=== PATIENT | male | born 1945 | race Caucasian/White ===

== ENCOUNTER → 2019-07-31 | Outpatient (CLI) | payer MEDICARE, OTHER ==
[~2019-07-31] MED LIST: Aspirin EC81 MG PO; CARV3.125 PO; COENZYME Q10100 MG PO; LISI20 PO; REPATHA SU140 MG/1 M SC; THERA-D2000 UNIT PO
[2019-08-03 14:07] LABS: M-SPIKE, % Not Observed % (Not Observed); PROTEIN,TOTAL,URINE 8.4 mg/dL (Not Estab.)
== END | disposition home or self-care (01) ==
LOC: OLS 06:00 → LAB SHORT 06:00
PROVIDERS: Internal Medicine
DX: Z00.01 Encounter for general adult medical examination with abnormal findings (principal)
CPT/HCPCS: 81050; 84156; 84166

== ENCOUNTER 2019-08-31 06:30 | Day surgery (SDC) | payer MEDICARE, OTHER ==
[~2019-08-31] VITALS: Ht 172.7 cm; Wt 84.8 kg
--- NOTE | 2019-08-31 08:15 | NUR ---
08/31/[address] AT BEDSIDE FOR CX WITH PATIENT. PROCEEDED WITH LEFT SHOULDER NERVE BLOCK PROC START 0804 INJ: 0807 PROC END: 08 PATIENT TOLERATED WELL WITH NO COMPLAINTS.
--- NOTE | 2019-08-31 09:33 | NUR ---
08/31/19 0933 Mary Randhawa 1 MG EPI ADDED TO EACH OF THE FIRST 3 LR BAGS.
== END 2019-08-31 11:25 | disposition home or self-care (01) ==
LOC: ORSCSDS 06:30
PROVIDERS: Orthopaedic Surgery
PROC: 0RBK4ZZ Excision of Left Shoulder Joint, Percutaneous Endoscopic Approach (ICD-10-PCS; principal; 2019-08-31 08:00)
PROC: 0LU24KZ Supplement Left Shoulder Tendon with Nonautologous Tissue Substitute, Percutaneous Endoscopic Approach (ICD-10-PCS; principal; 2019-08-31 08:00)
PROC: 0LQ24ZZ Repair Left Shoulder Tendon, Percutaneous Endoscopic Approach (ICD-10-PCS; principal; 2019-08-31 08:00)
PROC: 0RNK4ZZ Release Left Shoulder Joint, Percutaneous Endoscopic Approach (ICD-10-PCS; principal; 2019-08-31 08:00)
DX: M75.22 Bicipital tendinitis, left shoulder (principal); S46.002D Unspecified injury of muscle(s) and tendon(s) of the rotator cuff of left shoulder, subsequent encounter; M19.012 Primary osteoarthritis, left shoulder; M75.42 Impingement syndrome of left shoulder; I10 Essential (primary) hypertension; E11.9 Type 2 diabetes mellitus without complications; E78.5 Hyperlipidemia, unspecified; I25.2 Old myocardial infarction; Z87.891 Personal history of nicotine dependence; J44.9 Chronic obstructive pulmonary disease, unspecified; Z79.899 Other long term (current) drug therapy
CPT/HCPCS: C1713; J0171; J0690; J1100; J1885; J2250; J2370; J2405; J2704; J2795; J3010; J7120

== ENCOUNTER 2020-07-21 13:39 | Emergency (ER) | payer MEDICARE, OTHER ==
[~2020-07-21] VITALS: Ht 172.7 cm; Wt 81.7 kg
== END 2020-07-21 15:34 | disposition home or self-care (01) ==
LOC: ER 13:39
DX: S09.90XA Unspecified injury of head, initial encounter (principal); E11.9 Type 2 diabetes mellitus without complications; I10 Essential (primary) hypertension; Z79.82 Long term (current) use of aspirin; Z79.899 Other long term (current) drug therapy; Z87.891 Personal history of nicotine dependence; Z88.8 Allergy status to other drugs, medicaments and biological substances; W05.0XXA Fall from non-moving wheelchair, initial encounter
CPT/HCPCS: 70450; 99284-25

== ENCOUNTER → 2020-09-04 | Outpatient (CLI) | payer MEDICARE, OTHER ==
[~2020-09-04] MED LIST changes: +DIGOX125 MC1 PO; +ELIQUIS5 MG PO; +METF500 PO; +METOPROLOL SUCC25 MG PO
== END | disposition home or self-care (01) ==
LOC: PLD 08:12 → LAB SHORT 08:12
DX: B35.1 Tinea unguium (principal)
CPT/HCPCS: 88305; 88312

== ENCOUNTER 2020-12-18 15:55 | Emergency (ER) | payer MEDICARE, BC ==
[~2020-12-18] VITALS: Ht 172.7 cm; Wt 71.2 kg
[~2020-12-18 15:55] MED LIST changes: -DIGOX125 MC1 PO; -ELIQUIS5 MG PO; -METF500 PO; -METOPROLOL SUCC25 MG PO
[2020-12-18 16:55] LABS: BASOPHILS ABSOLUTE AUTO 0.04 K/mm3 (0.00-0.23); BASOPHILS PERCENT AUTO 1 % (0-2); EOSINOPHILS ABSOLUTE AUTO 0.12 K/mm3 (0.00-0.68); EOSINOPHILS PERCENT AUTO 2 % (0-6); Hematocrit 42.8 % (37.0-53.0); Hemoglobin 14.2 g/dL (13.5-17.5); IMMATURE GRAN ABSOLUTE AUTO 0.02 K/mm3 (0.00-0.10); IMMATURE GRAN PERCENT AUTO 0 % (0-1); LYMPHOCYTES ABSOLUTE AUTO 1.64 K/mm3 (0.84-5.20); LYMPHOCYTES PERCENT AUTO 22 % (21-46); MONOCYTES ABSOLUTE AUTO 0.64 K/mm3 (0.16-1.47); MONOCYTES PERCENT AUTO 9 % (4-13); Mean Corpuscular HGB Conc 33.2 g/dL (31.5-36.5); Mean Corpuscular Volume 93 fL (80-100); Mean Platelet Volume 10.6 fL (9.1-12.4); NEUTROPHILS ABSOLUTE AUTO 4.92 K/mm3 (1.96-9.15); NEUTROPHILS PERCENT AUTO 67 % (41-73); NRBC ABSOLUTE 0.02 K/mm3 (0.00-0.02); NRBC Auto 0.3 /100 WBC (0.0-0.2); Platelet Count 231 K/mm3 (150-400); RDW Coefficient Variation 12.5 % (11.7-14.2); RDW Standard Deviation 43.1 fL (35.1-46.3); Red Blood Cell Count 4.58 M/mm3 (4.30-5.90); White Blood Cell Count 7.38 K/mm3 (4.00-11.30)
[2020-12-18 17:15] LABS: Alanine Aminotransfer (ALT/SGP 18 U/L (12-78); Albumin, Blood 3.5 g/dL (3.4-5.0); Alk Phos 70 U/L (50-136); Anion Gap 3 mmol/L (6-16); Aspartate Aminotrans (AST/SGOT 5 U/L (12-37); Bilirubin, Total 0.3 mg/dL (0.1-1.0); Blood Urea Nitrogen 17 mg/dL (8-24); Bun/Creatinine Ratio 19.8 (12.0-20.0); CO2, Blood 31 mmol/L (21-32); Calcium, Blood 9.4 mg/dL (8.5-10.1); Chloride, Blood 106 mmol/L (98-108); Creatinine, Blood 0.86 mg/dL (0.60-1.20); Globulin, Blood 3.6 g/dL (2.2-4.0); Glomerular Filtration Rate >60 (60-); Glucose, Blood 217 mg/dL (70-99); Sodium, Blood 140 mmol/L (136-145); Total Protein, Blood 7.1 g/dL (6.4-8.2)
[2020-12-18] MEDS ORDERED: ELIQUIS5 MG PO (20:54)
[2020-12-18] MEDS ORDERED: METF500 PO (20:55)
[2020-12-18] MEDS ORDERED: DIGOX125 MC1 PO (20:55)
[2020-12-18] MEDS ORDERED: METOPROLOL SUCC25 MG PO (20:56)
== END 2020-12-18 21:05 | disposition home or self-care (01) ==
LOC: ER 15:55
PROVIDERS: Physician Assistant
DX: R05 Cough (principal); E11.9 Type 2 diabetes mellitus without complications; I10 Essential (primary) hypertension; E78.00 Pure hypercholesterolemia, unspecified; Z88.8 Allergy status to other drugs, medicaments and biological substances; Z79.82 Long term (current) use of aspirin; Z79.899 Other long term (current) drug therapy; Z87.891 Personal history of nicotine dependence
CPT/HCPCS: 71046; 80053; 85025; 99283-25

== ENCOUNTER → 2021-01-16 | Outpatient (CLI) | payer MEDICARE, BC ==
[~2021-01-16] MED LIST changes: +DIGOX125 MC1 PO; +ELIQUIS5 MG PO; +METF500 PO; +METOPROLOL SUCC25 MG PO
== END ==
LOC: LAB SHORT 11:30 → LAB 11:30
DX: N39.0 Urinary tract infection, site not specified (principal)
CPT/HCPCS: 87077; 87086; 87186

== ENCOUNTER 2021-04-01 08:04 | Inpatient (IN) | payer MEDICARE, BC ==
[~2021-04-01] VITALS: Ht 172.7 cm; Wt 74.8 kg
[2021-04-01 08:33] LABS: BASOPHILS ABSOLUTE AUTO 0.03 K/mm3 (0.00-0.23); BASOPHILS PERCENT AUTO 0 % (0-2); EOSINOPHILS PERCENT AUTO 0 % (0-6); Hematocrit 45.4 % (37.0-53.0); Hemoglobin 15.3 g/dL (13.5-17.5); IMMATURE GRAN ABSOLUTE AUTO 0.07 K/mm3 (0.00-0.10); IMMATURE GRAN PERCENT AUTO 1 % (0-1); LYMPHOCYTES ABSOLUTE AUTO 0.82 K/mm3 (0.84-5.20); LYMPHOCYTES PERCENT AUTO 6 % (21-46); MONOCYTES ABSOLUTE AUTO 1.14 K/mm3 (0.16-1.47); MONOCYTES PERCENT AUTO 8 % (4-13); Mean Corpuscular HGB 30.9 pg (26.0-34.0); Mean Corpuscular HGB Conc 33.7 g/dL (31.5-36.5); Mean Corpuscular Volume 92 fL (80-100); NEUTROPHILS PERCENT AUTO 85 % (41-73); RDW Coefficient Variation 12.7 % (11.7-14.2); RDW Standard Deviation 43.4 fL (35.1-46.3); Red Blood Cell Count 4.95 M/mm3 (4.30-5.90); White Blood Cell Count 14.16 K/mm3 (4.00-11.30)
[2021-04-01] MEDS ORDERED: PRALUENT P75 MG/1 ML SC (08:41)
[2021-04-01] MEDS ORDERED: Protonix40 M1 PO (08:42)
[2021-04-01 08:50] LABS: Alanine Aminotransfer (ALT/SGP 28 U/L (12-78); Albumin, Blood 3.5 g/dL (3.4-5.0); Albumin/Globulin Ratio 0.9 (0.8-1.8); Alk Phos 64 U/L (50-136); Anion Gap 3 mmol/L (6-16); Aspartate Aminotrans (AST/SGOT 17 U/L (12-37); Bilirubin, Total 1.3 mg/dL (0.1-1.0); Blood Urea Nitrogen 32 mg/dL (8-24); CO2, Blood 30 mmol/L (21-32); Calcium, Blood 9.4 mg/dL (8.5-10.1); Chloride, Blood 103 mmol/L (98-108); Glomerular Filtration Rate >60 (60-); Glucose, Blood 235 mg/dL (70-99); Potassium, Blood 3.9 mmol/L (3.5-5.5); Sodium, Blood 136 mmol/L (136-145); Total Protein, Blood 7.5 g/dL (6.4-8.2); Troponin I <0.015 ng/mL (0.000-0.040)
[2021-04-01 09:10] LABS: Mean Platelet Volume 10.5 fL (9.1-12.4); Platelet Count 196 K/mm3 (150-400)
[2021-04-01 09:55] LABS: Source, Urine Catheter
[2021-04-01 10:07] LABS: Appearance, Urine Clear (Clear); Bilirubin, Urine Neg (Neg); Blood, Urine 4+ (Neg); Color, Urine Amber (P-Yellow); Glucose Qualitative, Urine 4+ (Neg); Ketones, Urine 3+ (Neg); Leukocyte Esterase, Urine Neg (Neg); Nitrite, Urine Neg (Neg); Protein, Urine 2+ (Neg); Specific Gravity, Urine 1.025 (1.003-1.022); Urobilinogen, Urine NORM (Normal)
[2021-04-01 10:43] LABS: Red Blood Cells, Urine 25-50 /hpf (0-2); Squamous Epithelial Cells Rare /hpf (Few)
[2021-04-01 10:44] LABS: Bacteria Mod /hpf; Mucus Mod (0-Heavy)
[2021-04-01 11:53] LABS: Digoxin (Lanoxin) 0.65 ug/mL (0.80-2.00)
--- NOTE | 2021-04-01 16:23 | NUR ---
LATE ENTRY: ASSUMED CARE OF PT FROM ED THIS AFTERNOON. VSS. PT A&O X3. PT VERY PLESANT & THANKFUL FOR CARE. LS CLEAR, HARD FOR PT TO TAKE A DEEP BREATH W/O COUGHING. PT STATES SOB HAS INCREASE OVER THE LAST 3 DAYS. /10 WHEN STILL, PT STATES PAIN INCREASES WITH MOVEMENT OR COUGHING, PAIN IS TOLERABLE AT THIS TIME. DR LEZAMA & DR BECKER HAVE BOTH BEEN INTO SEE PT. PT AWAITING SURERY FOR CHOLECYSITIS. PT STATES HE TOOK ELIQUIS LAST NIGHT, PER DR LEZAMA WAITING A DAY OR TWO TO GET THIS OUT OF HIS SYSTEM. ALSO AWAITING CARDIOLOGY CLEARANCE FOR SEVERE AORTIC VALVE STENOSIS. PLAN IS TO MONITOR PT UNTIL THESE THINGS ARE COMPLETED. RN & DR LEZAMA HAVE BEEN IN CONTACT WITH PT . 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 PT IS RESTING COMFORTABLY WITH CALL LIGHT WITHIN REACH. WILL CONTINUE TO MONITOR UNTIL REPORT TO NIGHT SOURAV.
--- NOTE | 2021-04-01 20:30 | NUR ---
PT. WITH CLEAR LUNGS. PT. DOES HAVE A COUGH IN WHICH HE WAS MEDICATED FOR THIS EARLIER. PT. DENIED PAIN AT THE TIME. PT. WITH RIGHT HAND/ARM BRACE INTACT. PT. WITH PAS INTACT. PT. UNABLE TO MOVE HIS RIGHT SIDE. PT. ABLE TO MOVE HIS LEFT SIDE. PT. WITH HX OF STROKE IN THE PAST. PT. WITH CALL LIGHT WITHIN REACH. PT. VERBALIZES BEING WARM ENOUGH & NOT NEEDING A WARM BLANKET.
--- NOTE | 2021-04-01 22:21 | NUR ---
HOSPITALIST HERE TO CHECK ON PT. ORDER WAS RECEIVED LATER FOR A COVID TEST TO BE DONE IN WHICH COVID TEST WAS COLLECTED AT 2253 & TAKEN TO LAB.
--- NOTE | 2021-04-01 23:07 | NUR ---
PT. PUT HIS CALL LIGHT ON & WANTED TO CHANGE HIS POSITION. PT. WAS ALSO INCONTINENT OF URINE. PT. CLEANED UP WITH WARM WIPES & A NEW DIAPER WAS PLACED. PT. WITH BARRIER DRESSING INTACT. BOTTOM PINK. PT. WAS THEN TURNED TO HIS RIGHT SIDE & WITH HOB UP AT LEAST 30 DEGREES. PT. WAS GIVEN HIS CALL LIGHT & HIS WATER & JUICE IS WITHIN REACH ON HIS BEDSIDE TABLE.
[2021-04-01 23:47] LABS: SARS-Cov-2 (COVID-19) PCR, MMC NEGATIVE (NEGATIVE)
--- NOTE | 2021-04-02 02:09 | NUR ---
WENT IN TO CHECK ON PT. PT. WAS COUGHING. ASKED PT. IF HE WANTED ANY COUGH MEDICATION, PT. DENIED NEEDING ANY AT THIS TIME. CHECKED PT. TO SEE IF HE WAS INCONTINENT OF URINE, PT. DRY AT THIS TIME. ASKED PT. IF HE WANTED TO CHANGE POSITIONS, PT. VERBALIZED HE WAS FINE HOW HE WAS. PT. DRINKING WATER FROM HIS BEDSIDE CUP. CALL LIGHT IS WITHIN REACH.
--- NOTE | 2021-04-02 05:45 | NUR ---
PT. IS FLACCID ON RIGHT SIDE, ARM/HAND BRACE REMAINS INTACT. PT. ABLE TO MOVE LEFT SIDE. PT. DRINKING SIPS OF WATER OFF & ON. PT. DENIED PAIN. PT. COUGHING OFF & ON BUT DIDN'T WANT ANY COUGH SYRUP. PT. ASSISTED BY 2 STAFF TO CHANGE POSITIONS WHEN PT. WANTED TO REPOSITION. PT. ALSO INCONTINENT OF URINE X2. PT. WITH CALL LIGHT WITHIN REACH. PT. A&O X3. COVID TEST WAS DONE DURING THE NIGHT WITH RESULTS COMING BACK NEGATIVE.
--- NOTE | 2021-04-02 05:59 | NUR ---
IV NS CONTINUES AT 50ML/HR.
[2021-04-02 06:23] LABS: BASOPHILS ABSOLUTE AUTO 0.04 K/mm3 (0.00-0.23); BASOPHILS PERCENT AUTO 0 % (0-2); EOSINOPHILS ABSOLUTE AUTO 0.03 K/mm3 (0.00-0.68); EOSINOPHILS PERCENT AUTO 0 % (0-6); Hematocrit 40.9 % (37.0-53.0); Hemoglobin 13.8 g/dL (13.5-17.5); IMMATURE GRAN ABSOLUTE AUTO 0.06 K/mm3 (0.00-0.10); IMMATURE GRAN PERCENT AUTO 1 % (0-1); LYMPHOCYTES ABSOLUTE AUTO 1.29 K/mm3 (0.84-5.20); LYMPHOCYTES PERCENT AUTO 11 % (21-46); MONOCYTES ABSOLUTE AUTO 1.14 K/mm3 (0.16-1.47); MONOCYTES PERCENT AUTO 10 % (4-13); Mean Corpuscular HGB 31.3 pg (26.0-34.0); Mean Corpuscular HGB Conc 33.7 g/dL (31.5-36.5); Mean Corpuscular Volume 93 fL (80-100); Mean Platelet Volume 10.5 fL (9.1-12.4); NEUTROPHILS ABSOLUTE AUTO 9.44 K/mm3 (1.96-9.15); NEUTROPHILS PERCENT AUTO 79 % (41-73); Platelet Count 173 K/mm3 (150-400); RDW Coefficient Variation 12.5 % (11.7-14.2); RDW Standard Deviation 43.2 fL (35.1-46.3); Red Blood Cell Count 4.41 M/mm3 (4.30-5.90)
[2021-04-02 06:52] LABS: Alanine Aminotransfer (ALT/SGP 31 U/L (12-78); Albumin, Blood 2.8 g/dL (3.4-5.0); Albumin/Globulin Ratio 0.8 (0.8-1.8); Alk Phos 57 U/L (50-136); Anion Gap 4 mmol/L (6-16); Aspartate Aminotrans (AST/SGOT 17 U/L (12-37); Bilirubin, Total 0.9 mg/dL (0.1-1.0); Blood Urea Nitrogen 24 mg/dL (8-24); Bun/Creatinine Ratio 34.2 (12.0-20.0); CO2, Blood 28 mmol/L (21-32); Calcium, Blood 8.7 mg/dL (8.5-10.1); Chloride, Blood 105 mmol/L (98-108); Globulin, Blood 3.7 g/dL (2.2-4.0); Glomerular Filtration Rate >60 (60-); Glucose, Blood 166 mg/dL (70-99); Potassium, Blood 3.8 mmol/L (3.5-5.5); Sodium, Blood 137 mmol/L (136-145); Total Protein, Blood 6.5 g/dL (6.4-8.2)
--- NOTE | 2021-04-02 08:18 | NUR ---
HOB RAISED TO 45 DEGREES FOR EATING.PT ON CLEAR LIQUID DIET AND TOLERATED WELL. DISCUSSED WITH PT AWAITING CARDIOLOGY CONSULT FOR FURTHER PLAN AND TREATMENT. PT IN BED RESTING WILL CALL LIGHT WITHIN REACH ON LT SIDE. NO COMPLAINT OF PAIN AT THIS TIME.
--- NOTE | 2021-04-02 10:36 | NUR ---
DURING LINEN AND ATTENDS CHANGE THE PATIENT WAS ASKED IF HE WOULD LIKE TO BE TURNED ON ONE SIDE. PT DECLINED AND STATED HE WOULD PREFER TO LAY ON HIS BACK. PT BOOSTED IN BED AND SET UP WITH A TABLET TO WATCH A MOVIE.
--- NOTE | 2021-04-02 11:17 | NUR ---
BROUGHT IN COPY OF ADVANCE DIRECTIVE AND PT'S DAYTIME ARM/HAND BRACE WITH SLING STRAP. PLACED DAYTIME BRACE ON PT'S RT UPPER EXTREMITY. PT TOLERATED WITHOUT COMPLAINTS OR COMPLICATIONS. ADVANCE DIRECTIVE PLACED IN PT'S CHART.
--- NOTE | 2021-04-03 05:11 | NUR ---
PT REPOSTIONED THROUGH THE NIGHT PER PT'S REQUEST. DIAPER CHANGED AND SHAHEEN CARE DONE TWICE DURING THE NIGHT. PT NPO FOR SURGERY TODAY. PT CALM, RESTED THROUGH THE NIGHT. BED IN LOW, LOCKED POSITION, CALL LIGHT IN REACH.
[2021-04-03 05:24] LABS: BASOPHILS ABSOLUTE AUTO 0.03 K/mm3 (0.00-0.23); BASOPHILS PERCENT AUTO 0 % (0-2); EOSINOPHILS ABSOLUTE AUTO 0.05 K/mm3 (0.00-0.68); EOSINOPHILS PERCENT AUTO 1 % (0-6); Hematocrit 40.7 % (37.0-53.0); Hemoglobin 13.7 g/dL (13.5-17.5); IMMATURE GRAN ABSOLUTE AUTO 0.03 K/mm3 (0.00-0.10); IMMATURE GRAN PERCENT AUTO 0 % (0-1); LYMPHOCYTES ABSOLUTE AUTO 0.87 K/mm3 (0.84-5.20); LYMPHOCYTES PERCENT AUTO 8 % (21-46); MONOCYTES ABSOLUTE AUTO 1.07 K/mm3 (0.16-1.47); MONOCYTES PERCENT AUTO 10 % (4-13); Mean Corpuscular HGB Conc 33.7 g/dL (31.5-36.5); Mean Corpuscular Volume 92 fL (80-100); Mean Platelet Volume 10.7 fL (9.1-12.4); NEUTROPHILS ABSOLUTE AUTO 8.73 K/mm3 (1.96-9.15); NEUTROPHILS PERCENT AUTO 81 % (41-73); Platelet Count 175 K/mm3 (150-400); RDW Standard Deviation 40.9 fL (35.1-46.3); Red Blood Cell Count 4.42 M/mm3 (4.30-5.90); White Blood Cell Count 10.78 K/mm3 (4.00-11.30)
[2021-04-03 05:40] LABS: International Normalized Ratio 1.06; Prothrombin Time Results 11.4 Sec (9.7-11.5)
[2021-04-03 06:13] LABS: Alanine Aminotransfer (ALT/SGP 27 U/L (12-78); Albumin, Blood 2.6 g/dL (3.4-5.0); Albumin/Globulin Ratio 0.6 (0.8-1.8); Alk Phos 60 U/L (50-136); Anion Gap 6 mmol/L (6-16); Aspartate Aminotrans (AST/SGOT 16 U/L (12-37); Bilirubin, Total 0.9 mg/dL (0.1-1.0); Blood Urea Nitrogen 17 mg/dL (8-24); Bun/Creatinine Ratio 23.7 (12.0-20.0); CO2, Blood 26 mmol/L (21-32); Calcium, Blood 8.7 mg/dL (8.5-10.1); Chloride, Blood 104 mmol/L (98-108); Creatinine, Blood 0.72 mg/dL (0.60-1.20); Glomerular Filtration Rate >60 (60-); Glucose, Blood 164 mg/dL (70-99); Sodium, Blood 136 mmol/L (136-145); Total Protein, Blood 6.6 g/dL (6.4-8.2)
--- NOTE | 2021-04-03 07:42 | NUR ---
REDDEND AREA ON RT HEEL. PILLOW PLACED UNDER CALF TO ELEVATE HEEL OFF BED. WILL MONITOR FOR CHANGE IN STATUS AND ROTATE Q2H. CALL LIGHT AT BEDSIDE WITHIN REACH.
--- NOTE | 2021-04-03 09:26 | NUR ---
PT C/O CONSTIPATION STATING HIS LAST BM WAS WEDNESDAY. PT HAS BEEN ON A CLEAR LIQUID DIET. RN NOTIFIED.
--- NOTE | 2021-04-03 11:21 | NUR ---
IMAGING CAME TO TRANSFER PT FOR DRAIN PLACEMENT.
--- NOTE | 2021-04-03 13:31 | NUR ---
CALL PLACED TO HOSPITALIST DR LOPEZ. PT UNABLE TO SWALLOW CARDIAC MEDICATIONS. PT WAS ABLE TO SWALLOW TOPROL 50MG ONLY. PT WAS UNABLE TO TAKE HIS SCHEDULED DIGOXIN 0.125MG. TELEPHONE ORDER PER DR LOPEZ FOR SPEECH THERAPIST CONSULT AND DIGOXIN 0.125MG IV X1 NOW.
--- NOTE | 2021-04-03 15:52 | NUR ---
PT VOMITING LARGE AMOUNT OF GREEN VOMIT. PT'S OXYGEN SATS DROPPED TO 88% ON RA. BP 145/71. PULSE 93. RESPIRATIONS 36. RBS 220. PT APPEARS PALE AND NOT ABLE TO HOLD CONVERSATION. NOTIFIED DR LEZAMA WHOM PLACED STAT XRAY ORDER. PT PLACED ON OXYGEN 2L/MIN TO MAINTAIN OXYGEN SATURATION LEVEL OF 90%. CALLED RADIOLOGY TO COME FOR STAT XRAY.
[2021-04-03 17:14] LABS: BASOPHILS ABSOLUTE AUTO 0.05 K/mm3 (0.00-0.23); BASOPHILS PERCENT AUTO 0 % (0-2); EOSINOPHILS ABSOLUTE AUTO 0.03 K/mm3 (0.00-0.68); EOSINOPHILS PERCENT AUTO 0 % (0-6); Hematocrit 43.5 % (37.0-53.0); Hemoglobin 14.4 g/dL (13.5-17.5); IMMATURE GRAN ABSOLUTE AUTO 0.09 K/mm3 (0.00-0.10); IMMATURE GRAN PERCENT AUTO 1 % (0-1); LYMPHOCYTES ABSOLUTE AUTO 0.36 K/mm3 (0.84-5.20); LYMPHOCYTES PERCENT AUTO 2 % (21-46); MONOCYTES ABSOLUTE AUTO 0.97 K/mm3 (0.16-1.47); MONOCYTES PERCENT AUTO 7 % (4-13); Mean Corpuscular HGB 30.6 pg (26.0-34.0); Mean Corpuscular HGB Conc 33.1 g/dL (31.5-36.5); Mean Corpuscular Volume 93 fL (80-100); Mean Platelet Volume 10.5 fL (9.1-12.4); NEUTROPHILS ABSOLUTE AUTO 13.35 K/mm3 (1.96-9.15); NEUTROPHILS PERCENT AUTO 90 % (41-73); Platelet Count 201 K/mm3 (150-400); RDW Coefficient Variation 11.9 % (11.7-14.2); RDW Standard Deviation 41.3 fL (35.1-46.3); White Blood Cell Count 14.85 K/mm3 (4.00-11.30)
--- NOTE | 2021-04-03 17:15 | NUR ---
PT ARRIVED TO THE ROOM AT APPROXIMATELY 1700. PT LETHARGIC/DROWSY UPON ARRIVAL, PT RESPONDS TO VERBAL STIMULI. RR INCREASED AT APPROX 40/MIN, OTHER VSS. PT ON 2L O2 VIA NC AND MAINTAINING O2 SATURATIONS >90%. EXTREMITIES ARE COOL, CAP REFIL WNL. PULSES TO ALL EXTREMITIES PALPABLE AND PRESENT. IV FLUIDS RUNNING.
[2021-04-03 17:37] LABS: Alanine Aminotransfer (ALT/SGP 43 U/L (12-78); Albumin, Blood 2.7 g/dL (3.4-5.0); Albumin/Globulin Ratio 0.6 (0.8-1.8); Alk Phos 71 U/L (50-136); Anion Gap 12 mmol/L (6-16); Aspartate Aminotrans (AST/SGOT 39 U/L (12-37); Blood Urea Nitrogen 16 mg/dL (8-24); Bun/Creatinine Ratio 23.4 (12.0-20.0); CO2, Blood 21 mmol/L (21-32); Calcium, Blood 8.7 mg/dL (8.5-10.1); Chloride, Blood 102 mmol/L (98-108); Creatinine, Blood 0.69 mg/dL (0.60-1.20); Globulin, Blood 4.4 g/dL (2.2-4.0); Glomerular Filtration Rate >60 (60-); Glucose, Blood 220 mg/dL (70-99); Potassium, Blood 4.3 mmol/L (3.5-5.5); Sodium, Blood 135 mmol/L (136-145); Total Protein, Blood 7.1 g/dL (6.4-8.2); Troponin I 0.023 ng/mL (0.000-0.040)
--- NOTE | 2021-04-03 17:42 | NUR ---
LATE ENTRY STARTING AT 1540. PT'S BP 143/70 PULSE 90 OXYGEN 94% ON 2L/MIN. RANDOM BLOOD SUGAR TAKEN AND WAS 220.PT PALE WITH LABORED BREATHING. PT VOIMITING AND PROMETHAZINE GIVEN. PT RESPONDING TO VOICE BUT UNABLE TO COMPREHEND WHAT HE IS SAYING. PT'S BREATHING WORSENS AND RESPIRATIONS ARE 44 BPM. TEMP 99.9 DEGREES. CONTINUAL MONITORING PLACED ON PT. CONSULTED WITH DR LUONG. RAPID RESPONSE TEAM CALLED AROUND 1621.TEMP RECHECKED AND NOW [address] LEZAMA CONTACTED TO UPDATE ON PT'S DECLINING STATUS AND ADVISE OF RAPID RESPONSE CALL. RAPID RESPONSE TEAM ARRIVED AROUND APPROX 1624. REPORT GIVEN TO RAPID RESPONSE TEAM. DR LEZAMA AND DR LOPEZ ARRIVED. AT 1700 RAPID RESPONSE TEAM TRANSPORTED PT TO SURG FLOOR. REPORT GIVEN SOURAV CASTANON AT 1701.
--- NOTE | 2021-04-03 19:15 | NUR ---
SPOKE TO PT'S , MELVIN AND WILFREDO FELICIANO. SHE WAS CONCERNED ABOUT PT'S BGL. NURSING INFORMED HER THAT HIS GLUCOSE LEVELS ARE BEING MONITORED. SHE WAS CONCERNED ABOUT [facility]ARE AT [facility] WHEN PT WAS DISCHARGED. HOME CARE DISCUSSED. NURTRITIONAL NEEDS DISCUSSED. ENCOURAGED TO CALL FOR UPDATES. WILL CONTINUE TO MONITOR AND ADDRESS NEEDS THEY ARISE.
--- NOTE | 2021-04-03 19:56 | NUR ---
SHIFT SUMMARY PT REMAINS DROWSY/LETHARGIC SINCE ARRIVAL TO THE UNIT. PT CONTINUES TO WAKE UP TO VERBAL STIMULI. UNABLE TO UNDERSTAND HIS SPEECH IT IS VERY QUIET. FLUIDS INCREASED TO 100ML/HOUR PER DR. LOPEZ. REPORT GIVEN TO ORQUIDEA BENJAMIN.
--- NOTE | 2021-04-03 22:52 | NUR ---
DR BENEDICT UPDATED ON PT'S PROGRESS.
--- NOTE | 2021-04-04 00:53 | NUR ---
PT IS MORE ALERT AT THIS TIME. AAO X3, ABLE TO MOVE LEFT SIDE. ATTENDS IS DRY, USED THE URINAL WHEN PROMPTED. VOICES MILD PAIN AT INSERTION SITE. REFUSES PAIN MEDS OFFERED. ASSISTED IN REPOSITIONING FOR COMFORT. DENIES FURTHER NEEDS OR WANTS AT THIS TIME. SAFETY MEASURES IN PLACE. WILL CONTINUE TO MONITOR AND ADDRESS NEEDS THEY ARISE.
[2021-04-04 04:17] LABS: Hematocrit 39.5 % (37.0-53.0); Hemoglobin 13.5 g/dL (13.5-17.5); Mean Corpuscular HGB 31.7 pg (26.0-34.0); Mean Corpuscular HGB Conc 34.2 g/dL (31.5-36.5); Mean Corpuscular Volume 93 fL (80-100); Mean Platelet Volume 10.6 fL (9.1-12.4); Platelet Count 186 K/mm3 (150-400); RDW Coefficient Variation 12.2 % (11.7-14.2); RDW Standard Deviation 41.6 fL (35.1-46.3); Red Blood Cell Count 4.26 M/mm3 (4.30-5.90); White Blood Cell Count 11.83 K/mm3 (4.00-11.30)
[2021-04-04 04:41] LABS: Alanine Aminotransfer (ALT/SGP 34 U/L (12-78); Albumin, Blood 2.3 g/dL (3.4-5.0); Albumin/Globulin Ratio 0.6 (0.8-1.8); Alk Phos 58 U/L (50-136); Anion Gap 4 mmol/L (6-16); Aspartate Aminotrans (AST/SGOT 21 U/L (12-37); Bilirubin, Total 1.1 mg/dL (0.1-1.0); Blood Urea Nitrogen 15 mg/dL (8-24); CO2, Blood 26 mmol/L (21-32); Calcium, Blood 8.6 mg/dL (8.5-10.1); Chloride, Blood 107 mmol/L (98-108); Creatinine, Blood 0.68 mg/dL (0.60-1.20); Globulin, Blood 3.9 g/dL (2.2-4.0); Glomerular Filtration Rate >60 (60-); Glucose, Blood 168 mg/dL (70-99); Potassium, Blood 3.8 mmol/L (3.5-5.5); Sodium, Blood 137 mmol/L (136-145); Total Protein, Blood 6.2 g/dL (6.4-8.2)
--- NOTE | 2021-04-04 05:25 | NUR ---
LYING IN SEMI FOWLERS WITH EYES CLOSED, HE HAS RESTED WELL THIS SHIFT. HAS BEEN PLEASANT AND COOPERATIVE WITH CARE EACH TIME HE IS WOKEN UP. RIGHT UPPER QUAD DRAIN IS PATENT, DRAINING BILIOUS SS FLUID TO BAG. LEFT ARM AND LEFT HAND PIV'S ARE PATENT REMAIN PATENT, FLUSHING WITH EASE. GENTLE HYDRATION IN PROGRESS PER MD ORDERS. RESPIRATIONS EVEN AND UNLABORED ON O2 AT 2L/NC. DENIES FURTHER NEEDS OR WANTS AT THIS TIME. SAFETY MEASURES IN PLACE. WILL CONTINUE TO MONITOR AND GIVE HAND OFF TO ONCOMING SHIFT USING SBAR DURING BEDSIDE REPORT.
--- NOTE | 2021-04-04 05:34 | NUR ---
IVF CHANGED TO 50ML/HR PER MD ORDERS AFTER NS AT 100ML/HR WAS COMPLETED.
--- NOTE | 2021-04-04 06:15 | NUR ---
STATUS UPDATE GIVEN TO SPOUSE, MELVIN VIA TELEPHONE.
--- NOTE | 2021-04-04 06:40 | NUR ---
RESPOSITIONED AND DRANK WATER. INSTRUCTED ON SPLINTING WHEN COUGHING FOR ADDED SUPPORT, RETURN DEMONSTRATED CORRECTLY.
--- NOTE | 2021-04-04 17:58 | NUR ---
1630 TRANSFER VIA BED TO 216. PT AWAKE, ALERT, DENIES ANY NEEDS. UROSIL DRAIN PRESENT WITH DK BROWN SEROUS OUTPUT. PT DENIES NEED FOR PAIN MEDS
--- NOTE | 2021-04-04 18:00 | NUR ---
SPOKE WITH PATIENT REGARDING CODE STATUS- PT TELLS ME HE DOES WANT CPR AND IS OK WITH BEING PUT ON A BREATHING MACHINE. PER PATIENT HE JUST DOESNT WANT TO BE ON LIFE SUPPORT FOR WEEKS. PT RESTING CONFORTABLY
--- NOTE | 2021-04-04 19:17 | NUR ---
TRANSFER PT TRANSFERRED TO MED/SURGICAL.
[2021-04-05 04:47] LABS: BASOPHILS ABSOLUTE AUTO 0.03 K/mm3 (0.00-0.23); BASOPHILS PERCENT AUTO 1 % (0-2); EOSINOPHILS ABSOLUTE AUTO 0.14 K/mm3 (0.00-0.68); EOSINOPHILS PERCENT AUTO 3 % (0-6); Hematocrit 36.8 % (37.0-53.0); Hemoglobin 12.4 g/dL (13.5-17.5); IMMATURE GRAN ABSOLUTE AUTO 0.04 K/mm3 (0.00-0.10); IMMATURE GRAN PERCENT AUTO 1 % (0-1); LYMPHOCYTES PERCENT AUTO 15 % (21-46); MONOCYTES ABSOLUTE AUTO 0.68 K/mm3 (0.16-1.47); MONOCYTES PERCENT AUTO 12 % (4-13); Mean Corpuscular HGB 30.7 pg (26.0-34.0); Mean Corpuscular HGB Conc 33.7 g/dL (31.5-36.5); Mean Corpuscular Volume 91 fL (80-100); Mean Platelet Volume 10.3 fL (9.1-12.4); NEUTROPHILS ABSOLUTE AUTO 3.79 K/mm3 (1.96-9.15); NEUTROPHILS PERCENT AUTO 69 % (41-73); Platelet Count 175 K/mm3 (150-400); RDW Coefficient Variation 12.2 % (11.7-14.2); RDW Standard Deviation 40.8 fL (35.1-46.3); Red Blood Cell Count 4.04 M/mm3 (4.30-5.90); White Blood Cell Count 5.48 K/mm3 (4.00-11.30)
[2021-04-05 05:11] LABS: Alanine Aminotransfer (ALT/SGP 37 U/L (12-78); Albumin, Blood 2.2 g/dL (3.4-5.0); Albumin/Globulin Ratio 0.6 (0.8-1.8); Alk Phos 53 U/L (50-136); Anion Gap 4 mmol/L (6-16); Aspartate Aminotrans (AST/SGOT 24 U/L (12-37); Bilirubin, Total 0.6 mg/dL (0.1-1.0); Blood Urea Nitrogen 16 mg/dL (8-24); Bun/Creatinine Ratio 25.1 (12.0-20.0); CO2, Blood 26 mmol/L (21-32); Calcium, Blood 8.1 mg/dL (8.5-10.1); Chloride, Blood 110 mmol/L (98-108); Creatinine, Blood 0.64 mg/dL (0.60-1.20); Globulin, Blood 3.6 g/dL (2.2-4.0); Glomerular Filtration Rate >60 (60-); Glucose, Blood 156 mg/dL (70-99); Potassium, Blood 3.5 mmol/L (3.5-5.5); Sodium, Blood 140 mmol/L (136-145); Total Protein, Blood 5.8 g/dL (6.4-8.2)
[2021-04-05] MEDS ORDERED: AMOCLA875 PO (13:15)
--- NOTE | 2021-04-05 14:55 | NUR ---
DISCHARGE NOTE PT IS A/O X4. S/P DRAIN PLACEMENT FOR GANGRENOUS GALLBLADDER. PT DC'ING HOME WITH HOME HEALTH TO MANAGE DRAIN. DC INSTRUCTIONS REVIEWED WITH AT BEDSIDE, BOTH REPORT UNDERSTANDING. SUPPLIES SENT HOME WITH PT. SCRIPT FAXED TO PHARMACY PER PT REQUEST. IV DC'D WNL. PT DRESSED, ASSISTED INTO WHEELCHAIR AND ESCORTED BY STAFF TO PERSONAL VEHICLE WHERE IS DRIVING HOME. PAPERWORK AND PERSONAL BELONGINGS SENT WITH PT. PT AND HAVE HO QUESTIONS OR CONCERNS AT THIS TIME. ORDERS FOR HOME HEALTH FAXED TO [facility] PER PT REQUEST. DC'D AT 1500.
== END 2021-04-05 15:30 | disposition home health service (06) | DRG 445 ==
LOC: ER 08:04 → SURS 08:05 → ORSCIP 12:05 → SURS 13:41 → ORSCIP 13:42 → SURS 04-03 17:08
PROVIDERS: Emergency Medicine; Hospitalist; Internal Medicine; ADMIT Surgery
PROC: 0F9430Z Drainage of Gallbladder with Drainage Device, Percutaneous Approach (ICD-10-PCS; principal; 2021-04-03)
DX: K80.01 Calculus of gallbladder with acute cholecystitis with obstruction (principal); I69.351 Hemiplegia and hemiparesis following cerebral infarction affecting right dominant side; T81.44XA Sepsis following a procedure, initial encounter; T81.49XA Infection following a procedure, other surgical site, initial encounter; I10 Essential (primary) hypertension; E78.00 Pure hypercholesterolemia, unspecified; I48.91 Unspecified atrial fibrillation; I25.10 Atherosclerotic heart disease of native coronary artery without angina pectoris; E78.5 Hyperlipidemia, unspecified; K21.9 Gastro-esophageal reflux disease without esophagitis; I35.0 Nonrheumatic aortic (valve) stenosis; Z20.822 Contact with and (suspected) exposure to COVID-19; E11.9 Type 2 diabetes mellitus without complications; Z95.1 Presence of aortocoronary bypass graft; I25.2 Old myocardial infarction; Z98.890 Other specified postprocedural states; Z88.8 Allergy status to other drugs, medicaments and biological substances; Z79.01 Long term (current) use of anticoagulants; Z87.891 Personal history of nicotine dependence; Z79.899 Other long term (current) drug therapy; Y83.8 Other surgical procedures as the cause of abnormal reaction of the patient, or of later complication, without mention of misadventure at the time of the procedure
CPT/HCPCS: 36415; 49405; 51701; 71045; 74018; 74177; 76705; 80053; 80162; 81001; 82947; 83605; 83690; 84484; 85025; 85027; 85610; 87040; 87086; 92526; 92610; 93005; 93010; 96374-59; 99285-25; A9270; C9113; G0378; J0694; J1160; J2405; J2543; J2550; J7030; Q9967; U0004

== ENCOUNTER 2021-05-08 08:52 | Day surgery (SDC) | payer OTHER ==
[~2021-05-08] VITALS: Ht 172.7 cm; Wt 65.3 kg
[~2021-05-08 08:52] MED LIST changes: +AMOCLA875 PO; +PRALUENT P75 MG/1 ML SC; +Protonix40 M1 PO
--- NOTE | 2021-05-08 10:41 | NUR ---
DR. CHOI AT THE BEDSIDE AND SPOKE WITH THE PATIENT. VISITED WITH THE AND PATIENT, ALL QUESTIONS ANSWERED.
[2021-05-08 11:49] LABS: PCO2 Arterial 41 mmHg (35-45); PO2 Arterial 82 mmHg (80-100); pH Blood Arterial 7.43 (7.35-7.45)
--- NOTE | 2021-05-08 12:55 | NUR ---
PATIENT RETURNED FROM THE CATHLAB. RIGHT FEMORAL ARTERY ADN VEIN ACCESS SITES. FEMSTOP IN PLACE DUE TO A FAILED VENOUS CLOSURE DEVICE. MANUAL PRESSURE HELD AND FEMSTOP APPLIED AT 60 MM/HG. PEDAL PULSE PALPABLE 2+ MONITOR APPLIED AND CALL IGHT IN REACH. HOB FLAT BUT BED IN REVERSE TRENDELENBERG.
--- NOTE | 2021-05-08 13:25 | NUR ---
SBAR REPORT OBTAINED. DR. CHOI AT THE BEDSIDE AND SPOKE WITH THE AND .
--- NOTE | 2021-05-08 14:19 | NUR ---
FEMSTOP REMOVED. RIGHT GROIN SITE STABLE. RIGHT PEDAL PULSE 2+ PT/PT
--- NOTE | 2021-05-08 18:04 | NUR ---
DISCHARGE PT SAT UP IN BED AND SAT ON EDGE OF BED. PT DRESSED WITH ASSIST OF RN AND . PTS R FEMORAL SITE WITH NO BLEEDING, OOZING OR HEMATOMA NOTED. PT DENIES ANY PAIN AT SITE. PT AND STATE THEIR UNDERSTANDING OF DC AND SITE CARE INSTRUCTIONS AND BOTH DENY ANY QUESTIONS OR CONCERNS. VSS. IV DCD WITH CATH IN TACT. PT TAKE TO EXIT VIA PERSONAL WHEELCHAIR WHERE WAS WAITING WITH VEHICLE.
== END 2021-05-08 22:56 | disposition home or self-care (01) ==
LOC: MHTC 08:52
PROVIDERS: Registered Nurse
PROC: B2111ZZ Fluoroscopy of Multiple Coronary Arteries using Low Osmolar Contrast (ICD-10-PCS; principal; 2021-05-08)
PROC: 4A023N8 Measurement of Cardiac Sampling and Pressure, Bilateral, Percutaneous Approach (ICD-10-PCS; principal; 2021-05-08)
PROC: B2181ZZ Fluoroscopy of Left Internal Mammary Bypass Graft using Low Osmolar Contrast (ICD-10-PCS; principal; 2021-05-08)
DX: I35.0 Nonrheumatic aortic (valve) stenosis (principal); I11.0 Hypertensive heart disease with heart failure; I50.9 Heart failure, unspecified; I25.10 Atherosclerotic heart disease of native coronary artery without angina pectoris; E78.5 Hyperlipidemia, unspecified; E11.51 Type 2 diabetes mellitus with diabetic peripheral angiopathy without gangrene; I48.0 Paroxysmal atrial fibrillation; Z95.5 Presence of coronary angioplasty implant and graft; Z88.8 Allergy status to other drugs, medicaments and biological substances; Z95.1 Presence of aortocoronary bypass graft; Z79.01 Long term (current) use of anticoagulants; Z79.899 Other long term (current) drug therapy; Z87.891 Personal history of nicotine dependence
CPT/HCPCS: 82803; 93461; 99152; C1751; C1760; C1769; C1894; J1644; J2250; J3010; J7030; J7040; J7050; Q9967

== ENCOUNTER 2021-05-14 18:10 | Emergency (ER) | payer OTHER, BC ==
[~2021-05-14] VITALS: Ht 172.7 cm; Wt 66.2 kg
[2021-05-14 18:48] LABS: BASOPHILS ABSOLUTE AUTO 0.03 K/mm3 (0.00-0.23); BASOPHILS PERCENT AUTO 1 % (0-2); EOSINOPHILS ABSOLUTE AUTO 0.12 K/mm3 (0.00-0.68); EOSINOPHILS PERCENT AUTO 2 % (0-6); Hematocrit 38.5 % (37.0-53.0); Hemoglobin 12.9 g/dL (13.5-17.5); IMMATURE GRAN ABSOLUTE AUTO 0.02 K/mm3 (0.00-0.10); IMMATURE GRAN PERCENT AUTO 0 % (0-1); LYMPHOCYTES ABSOLUTE AUTO 1.58 K/mm3 (0.84-5.20); LYMPHOCYTES PERCENT AUTO 29 % (21-46); MONOCYTES ABSOLUTE AUTO 0.49 K/mm3 (0.16-1.47); MONOCYTES PERCENT AUTO 9 % (4-13); Mean Corpuscular HGB 30.9 pg (26.0-34.0); Mean Corpuscular HGB Conc 33.5 g/dL (31.5-36.5); Mean Corpuscular Volume 92 fL (80-100); Mean Platelet Volume 9.9 fL (9.1-12.4); NEUTROPHILS ABSOLUTE AUTO 3.14 K/mm3 (1.96-9.15); NEUTROPHILS PERCENT AUTO 58 % (41-73); Platelet Count 209 K/mm3 (150-400); RDW Coefficient Variation 12.8 % (11.7-14.2); RDW Standard Deviation 43.5 fL (35.1-46.3); Red Blood Cell Count 4.17 M/mm3 (4.30-5.90); White Blood Cell Count 5.38 K/mm3 (4.00-11.30)
[2021-05-14 19:10] LABS: Alanine Aminotransfer (ALT/SGP 45 U/L (12-78); Albumin, Blood 3.1 g/dL (3.4-5.0); Albumin/Globulin Ratio 0.7 (0.8-1.8); Alk Phos 65 U/L (50-136); Anion Gap 5 mmol/L (6-16); Aspartate Aminotrans (AST/SGOT 25 U/L (12-37); Bilirubin, Total 0.4 mg/dL (0.1-1.0); Blood Urea Nitrogen 20 mg/dL (8-24); Bun/Creatinine Ratio 26.5 (12.0-20.0); CO2, Blood 27 mmol/L (21-32); Calcium, Blood 9.4 mg/dL (8.5-10.1); Chloride, Blood 107 mmol/L (98-108); Creatinine, Blood 0.75 mg/dL (0.60-1.20); Globulin, Blood 4.2 g/dL (2.2-4.0); Glomerular Filtration Rate >60 (60-); Glucose, Blood 141 mg/dL (70-99); Potassium, Blood 3.9 mmol/L (3.5-5.5); Sodium, Blood 139 mmol/L (136-145); Total Protein, Blood 7.3 g/dL (6.4-8.2)
[2021-05-14] MEDS ORDERED: CEPH500 PO (22:58)
== END 2021-05-14 23:12 | disposition home or self-care (01) ==
LOC: ER 18:10
PROVIDERS: Emergency Medicine
DX: T81.40XA Infection following a procedure, unspecified, initial encounter (principal); Z88.8 Allergy status to other drugs, medicaments and biological substances; Z79.899 Other long term (current) drug therapy; I10 Essential (primary) hypertension; E11.9 Type 2 diabetes mellitus without complications; E78.00 Pure hypercholesterolemia, unspecified; I25.2 Old myocardial infarction; Z79.01 Long term (current) use of anticoagulants; Z79.84 Long term (current) use of oral hypoglycemic drugs; Z86.73 Personal history of transient ischemic attack (TIA), and cerebral infarction without residual deficits; Z90.49 Acquired absence of other specified parts of digestive tract
CPT/HCPCS: 36415; 80053; 83605; 85025; 99283

== ENCOUNTER 2021-07-03 21:41 | Inpatient (IN) | payer MEDICARE, BC ==
[~2021-07-03] VITALS: Ht 172.7 cm; Wt 66.7 kg
[~2021-07-03 21:41] MED LIST changes: +CEPH500 PO
[2021-07-03 22:09] LABS: BASOPHILS ABSOLUTE AUTO 0.04 K/mm3 (0.00-0.23); BASOPHILS PERCENT AUTO 1 % (0-2); EOSINOPHILS ABSOLUTE AUTO 0.12 K/mm3 (0.00-0.68); EOSINOPHILS PERCENT AUTO 1 % (0-6); Hematocrit 41.9 % (37.0-53.0); IMMATURE GRAN ABSOLUTE AUTO 0.02 K/mm3 (0.00-0.10); IMMATURE GRAN PERCENT AUTO 0 % (0-1); LYMPHOCYTES ABSOLUTE AUTO 0.87 K/mm3 (0.84-5.20); LYMPHOCYTES PERCENT AUTO 10 % (21-46); MONOCYTES ABSOLUTE AUTO 0.76 K/mm3 (0.16-1.47); MONOCYTES PERCENT AUTO 9 % (4-13); Mean Corpuscular HGB 31.3 pg (26.0-34.0); Mean Corpuscular HGB Conc 33.4 g/dL (31.5-36.5); Mean Corpuscular Volume 94 fL (80-100); Mean Platelet Volume 10.5 fL (9.1-12.4); NEUTROPHILS ABSOLUTE AUTO 6.55 K/mm3 (1.96-9.15); NEUTROPHILS PERCENT AUTO 78 % (41-73); Platelet Count 177 K/mm3 (150-400); RDW Coefficient Variation 12.5 % (11.7-14.2); RDW Standard Deviation 43.1 fL (35.1-46.3); Red Blood Cell Count 4.47 M/mm3 (4.30-5.90); White Blood Cell Count 8.36 K/mm3 (4.00-11.30)
[2021-07-03 22:30] LABS: Alanine Aminotransfer (ALT/SGP 405 U/L (12-78); Albumin, Blood 3.3 g/dL (3.4-5.0); Albumin/Globulin Ratio 0.9 (0.8-1.8); Alk Phos 325 U/L (50-136); Anion Gap 6 mmol/L (6-16); Aspartate Aminotrans (AST/SGOT 361 U/L (12-37); Bilirubin, Total 1.5 mg/dL (0.1-1.0); Blood Urea Nitrogen 17 mg/dL (8-24); Bun/Creatinine Ratio 26.9 (12.0-20.0); CO2, Blood 28 mmol/L (21-32); Calcium, Blood 9.2 mg/dL (8.5-10.1); Chloride, Blood 105 mmol/L (98-108); Creatinine, Blood 0.63 mg/dL (0.60-1.20); Globulin, Blood 3.6 g/dL (2.2-4.0); Glomerular Filtration Rate >60 (60-); Glucose, Blood 177 mg/dL (70-99); Potassium, Blood 4.2 mmol/L (3.5-5.5); Sodium, Blood 139 mmol/L (136-145); Total Protein, Blood 6.9 g/dL (6.4-8.2)
[2021-07-03 23:31] LABS: Influenza A, PCR NEGATIVE (NEGATIVE); Influenza B, PCR NEGATIVE (NEGATIVE); Resp Syncytial Virus, PCR NEGATIVE (NEGATIVE); SARS-Cov-2 (COVID-19) PCR, MMC NEGATIVE (NEGATIVE)
[2021-07-03] MEDS ORDERED: OXYC5 PO (23:39)
[2021-07-03] MEDS ORDERED: METOPROLOL TART PO (23:40)
[2021-07-03] MEDS ORDERED: LANOXIN125 MCG PO (23:40)
[2021-07-03] MEDS ORDERED: ELIQUIS5 M3 PO (23:42)
--- NOTE | 2021-07-04 03:16 | NUR ---
PATIENT IS ALERT AND ORIENTATED, CONTRACTURE BRACE IN PLACE LESLY, PATIENT HAS CONTRACTURE BRACE FOR RIGHT LEG, EDWIGE WALKER, SPECIAL GAIT BELT AND HEARING AIDS BILATERAL AT HOME MELVIN WILL BRING IN, PATIENT HAD EMESIS AFTER TRANSFER FROM STRETCHER TO BED 50ML GREEN, POST CHOLESCETOMY SIX DAYS AGO, NPO WITH NS RUNNING AT 200ML/HR, AMPERCILIAN IV STARTED, PATIENT IS AT A 90 DEGREE HEAD OF BED, SUCTION REACHABLE ON THE LEFT SIDE AND EMESIS BAG, EDUCATION GIVEN ON ROOM, SAFETY AND ORIENTATION. WAS GIVEN INFORMATION AND ASSISTED IN ADMISSION GOOD HISTORIAN. WILL BE BACK IN THE MORNING. POST SURGICAL SITE MID UPPER ABDOMEN IS INTACT PINK NO S/SX OF INFECTION, HEALS ARE RED BLANCHABLE AND BOGGY WILL APPLY MEPLIX. PATIENT HAS A SPECIAL DIET AT HOME, THICKEN LIQUIDS SOFT FOODS CUT IN SMALL PIECES, CURRENLY NPO AND COMPENSATION ASSOCIATE WERO ORDERED. WILL CONTINUE TO MONITOR
[2021-07-04 04:23] LABS: BASOPHILS ABSOLUTE AUTO 0.03 K/mm3 (0.00-0.23); BASOPHILS PERCENT AUTO 0 % (0-2); EOSINOPHILS ABSOLUTE AUTO 0.14 K/mm3 (0.00-0.68); EOSINOPHILS PERCENT AUTO 1 % (0-6); Hematocrit 43.7 % (37.0-53.0); Hemoglobin 14.3 g/dL (13.5-17.5); IMMATURE GRAN ABSOLUTE AUTO 0.04 K/mm3 (0.00-0.10); IMMATURE GRAN PERCENT AUTO 0 % (0-1); LYMPHOCYTES ABSOLUTE AUTO 0.31 K/mm3 (0.84-5.20); LYMPHOCYTES PERCENT AUTO 3 % (21-46); MONOCYTES PERCENT AUTO 7 % (4-13); Mean Corpuscular HGB 30.8 pg (26.0-34.0); Mean Corpuscular HGB Conc 32.7 g/dL (31.5-36.5); Mean Corpuscular Volume 94 fL (80-100); Mean Platelet Volume 10.9 fL (9.1-12.4); NEUTROPHILS ABSOLUTE AUTO 10.69 K/mm3 (1.96-9.15); NEUTROPHILS PERCENT AUTO 89 % (41-73); Platelet Count 170 K/mm3 (150-400); RDW Coefficient Variation 12.7 % (11.7-14.2); RDW Standard Deviation 44.2 fL (35.1-46.3); Red Blood Cell Count 4.65 M/mm3 (4.30-5.90); White Blood Cell Count 12.01 K/mm3 (4.00-11.30)
[2021-07-04 04:51] LABS: Alanine Aminotransfer (ALT/SGP 341 U/L (12-78); Albumin, Blood 3.2 g/dL (3.4-5.0); Albumin/Globulin Ratio 0.8 (0.8-1.8); Alk Phos 286 U/L (50-136); Anion Gap 10 mmol/L (6-16); Aspartate Aminotrans (AST/SGOT 201 U/L (12-37); Bilirubin, Total 1.3 mg/dL (0.1-1.0); Blood Urea Nitrogen 15 mg/dL (8-24); Bun/Creatinine Ratio 20.6 (12.0-20.0); CO2, Blood 25 mmol/L (21-32); Calcium, Blood 9.3 mg/dL (8.5-10.1); Chloride, Blood 103 mmol/L (98-108); Creatinine, Blood 0.73 mg/dL (0.60-1.20); Globulin, Blood 3.9 g/dL (2.2-4.0); Glomerular Filtration Rate >60 (60-); Glucose, Blood 218 mg/dL (70-99); Potassium, Blood 3.8 mmol/L (3.5-5.5); Sodium, Blood 138 mmol/L (136-145); Total Protein, Blood 7.1 g/dL (6.4-8.2)
--- NOTE | 2021-07-04 11:12 | NUR ---
Pt. was alert and sitting up, and recogniozed me when I entered. Pt. demonstrated some spiritual distress over the lack of progress in his health. Listened Empathetically. Provided a calming presence. Normalized the patients experience. Pt. has good support from home. Prayed with Pt. and will seek to be available to him and his family.
--- NOTE | 2021-07-04 16:42 | NUR ---
UPDATE PT WAS IN CHAIR WHN THIS RN ENTERED ROOM AT 1620. PT WAS AT BEDSIDE. THIS RN WAS ASKING PT AND PT HOW PT TRANSFERS DAY-TO-DAY WHEN AT HOME. PT STATED THAT HE WOULD LIKE TO GET BACK INTO BED. PT DEMONSTRATED HOW PT TRANSFERS FROM CHAIR TO BED THEY WOULD DO AT HOME. THIS RN HAD GAIT BELT HELD FOR SAFETY PT AND HAD PT STAND, PIVOT, AND BACK-UP TO BED. PT WAS ABLE TO DO MOST OF THE STANDING BY PUSHING OFF ON ARMREST OF CHAIR AND PIVOT SELF TO BED WHILE HOLDING ONTO WALKER. PT WAS ABLE TO BACK SELF TO BED AND USE STRONG HAND TO EASE SELF TO THE BED. PT TOLERATED WELL WITH NO REPORTS OF SOB, LIGHTHEADEDNESS OR NAUSEA WHILE UP IN ROOM.
--- NOTE | 2021-07-04 18:43 | NUR ---
SHIFT SUMMARY PT A/O X4 AND COOPERATIVE OF CARE. VSS T/O SHIFT WITH O2 SATS >93%. PT WAS ON 15L OXYMIZER AT BEGINNING OF SHIFT; TITRATED TO 8L; THEN TITRATED TO RA, SATS REMAINED >93%. PT WAS UP TO CHAIR WITH MODERATE ASSISTANCE. PT SPOUSE WAS AT BEDSIDE, DEMONSTRATED HOW PT TRANSFERS AT HOME WITH ASSISTANCE OF THIS RN, PT WAS ABLE TO DO ALOT OF THE TRANSFERING HIMSELF. PT HAS CONDOM CATH IN PLACE, DRAINING ALTON URINE. PT HAS RIGHT SIDED DEFICIT, CONTRACTURE BRACES APPLIED BY DURING VISITATION. NO C/O NAUSEA T/O SHIFT. NO REPORTS OF CHEST PAIN/PRESSURE T/O SHIFT.
--- NOTE | 2021-07-04 22:04 | NUR ---
PATIENT IS ALERT RESTING IN BED USES CALL LIGHT APPROPRIATELY. BECAME TEARFUL TONIGHT TALKING ABOUT HOW HE IS LOOKING FORWARD TO GOING BACK TO WORK AT THE [employer] A VOLUNTE[employer] AND THEY HAVE REALLY SUPPORTED HIM AND KEPT HIM GOING. AFTER HIS STROKE HE FINDS HIMSELF MORE EMOTIONAL AT TIMES AND TEARFUL THAT WAS NOT HIS PERSONALITY PRIOR TO THE STROKE, EDUCATION GIVEN AND THERAPEUTIC LISTENING PROVIDED ON POST STROKE SYMPTOMS WITH REASSURANCE. DISCUSSED POSSIBLY TALKING WITH SOMEONE, AND CAN BE HELPFUL AFTER A STROKE, HE HAS LOTS OF SUPPORT FROM HIS MELVIN AND THE COMMUNITY. HIS CONDOM CATH IS INTACK, SKIN LOOKS GOOD AND DRAINING DARK YELLOW URINE, NO COMPLAINTS OF NAUSEA, VOMITING AND FEELS MUCH BETTER THAN YESTERDAY. STILL NOTED DELAYED COUGH WITH TAKING HIS MEDICATIONS CRUSHED IN APPLESAUSE APPROACHING ON THE LEFT SIDE WITH QUEING ON TUCKING CHIN AND SWALLOWING, FOLLOWED BY NECTAR THICK WATER USING A SPOON. WILL CONTINUE TO MONITOR AND CHART ANY NEW CHANGES IF ANY.
[2021-07-05 04:29] LABS: BASOPHILS ABSOLUTE AUTO 0.03 K/mm3 (0.00-0.23); BASOPHILS PERCENT AUTO 1 % (0-2); EOSINOPHILS ABSOLUTE AUTO 0.18 K/mm3 (0.00-0.68); EOSINOPHILS PERCENT AUTO 3 % (0-6); Hematocrit 38.1 % (37.0-53.0); Hemoglobin 12.5 g/dL (13.5-17.5); IMMATURE GRAN ABSOLUTE AUTO 0.02 K/mm3 (0.00-0.10); IMMATURE GRAN PERCENT AUTO 0 % (0-1); LYMPHOCYTES PERCENT AUTO 16 % (21-46); MONOCYTES PERCENT AUTO 10 % (4-13); Mean Corpuscular HGB 31.1 pg (26.0-34.0); Mean Corpuscular HGB Conc 32.8 g/dL (31.5-36.5); Mean Corpuscular Volume 95 fL (80-100); Mean Platelet Volume 10.5 fL (9.1-12.4); NEUTROPHILS ABSOLUTE AUTO 4.48 K/mm3 (1.96-9.15); NEUTROPHILS PERCENT AUTO 71 % (41-73); Platelet Count 158 K/mm3 (150-400); RDW Coefficient Variation 12.7 % (11.7-14.2); RDW Standard Deviation 44.5 fL (35.1-46.3); Red Blood Cell Count 4.02 M/mm3 (4.30-5.90); White Blood Cell Count 6.31 K/mm3 (4.00-11.30)
[2021-07-05 04:56] LABS: Alanine Aminotransfer (ALT/SGP 219 U/L (12-78); Albumin, Blood 2.7 g/dL (3.4-5.0); Albumin/Globulin Ratio 0.8 (0.8-1.8); Alk Phos 265 U/L (50-136); Anion Gap 8 mmol/L (6-16); Aspartate Aminotrans (AST/SGOT 146 U/L (12-37); Blood Urea Nitrogen 18 mg/dL (8-24); Bun/Creatinine Ratio 25.9 (12.0-20.0); CO2, Blood 27 mmol/L (21-32); Calcium, Blood 8.8 mg/dL (8.5-10.1); Chloride, Blood 106 mmol/L (98-108); Globulin, Blood 3.6 g/dL (2.2-4.0); Glomerular Filtration Rate >60 (60-); Glucose, Blood 133 mg/dL (70-99); Potassium, Blood 3.5 mmol/L (3.5-5.5); Sodium, Blood 141 mmol/L (136-145); Total Protein, Blood 6.3 g/dL (6.4-8.2)
[2021-07-05] MEDS ORDERED: AMOCLA875 PO (11:27)
[2021-07-05] MEDS ORDERED: METO10 PO (11:28)
[2021-07-05] MEDS ORDERED: BANATROL PLUS1 EAC1 PO (11:29)
[2021-07-05] MEDS ORDERED: PROBIOTIC1 EA13 PO (11:29)
--- NOTE | 2021-07-05 14:22 | NUR ---
PT DISCHARGE PT PROVIDED WITH DISCHARGE INSTRUCTIONS PER PHYSICIAN. MEDICATIONS SENT TO PT'S PREFERRED PHARMACY. VSS. AT BEDSIDE. IV REMOVED. TELE REMOVED. PT BROUGHT TO PRIVATE VEHICLE WITH AIRPLANE PILOT CHIEF WITH ALL BELONGINGS. PT'S TO TAKE PT HOME.
== END 2021-07-05 13:41 | disposition home or self-care (01) | DRG 177 ==
LOC: ER 21:41 → PCU 07-04 01:18
PROVIDERS: Emergency Medicine; Family Medicine; Student in an Organized Health Care Education/Training Program; ADMIT Internal Medicine
DX: J69.0 Pneumonitis due to inhalation of food and vomit (principal); J96.01 Acute respiratory failure with hypoxia; I50.20 Unspecified systolic (congestive) heart failure; I48.20 Chronic atrial fibrillation, unspecified; I69.351 Hemiplegia and hemiparesis following cerebral infarction affecting right dominant side; I48.92 Unspecified atrial flutter; E11.9 Type 2 diabetes mellitus without complications; I11.0 Hypertensive heart disease with heart failure; K66.8 Other specified disorders of peritoneum; E78.00 Pure hypercholesterolemia, unspecified; Z20.822 Contact with and (suspected) exposure to COVID-19; E78.5 Hyperlipidemia, unspecified; I35.0 Nonrheumatic aortic (valve) stenosis; I25.10 Atherosclerotic heart disease of native coronary artery without angina pectoris; I25.2 Old myocardial infarction; Z88.8 Allergy status to other drugs, medicaments and biological substances; Z90.49 Acquired absence of other specified parts of digestive tract; Z95.1 Presence of aortocoronary bypass graft; Z98.890 Other specified postprocedural states; Z87.891 Personal history of nicotine dependence; Z79.01 Long term (current) use of anticoagulants; Z79.84 Long term (current) use of oral hypoglycemic drugs; Z79.899 Other long term (current) drug therapy; R13.10 Dysphagia, unspecified
CPT/HCPCS: 0241U; 36415; 71260; 74022; 74177; 80053; 82947; 83690; 85025; 90686; 92526; 92610; 93005; 93010; 94762; 96374; 96375; 97110; 97161; 97166; 97530; 99285-25; A9270; G0008; J0295; J0780; J1815; J2765; J3010; J7030; Q9967

== ENCOUNTER 2021-11-28 17:28 | Emergency (ER) | payer MEDICARE, BC ==
[~2021-11-28] VITALS: Ht 172.7 cm; Wt 68.0 kg
[~2021-11-28 17:28] MED LIST changes: +BANATROL PLUS1 EAC1 PO; +ELIQUIS5 M3 PO; +LANOXIN125 MCG PO; +METO10 PO; +METOPROLOL TART PO; +OXYC5 PO; +PROBIOTIC1 EA13 PO
== END 2021-11-28 20:11 | disposition home or self-care (01) ==
LOC: ER 17:28
DX: S09.90XA Unspecified injury of head, initial encounter (principal); E11.9 Type 2 diabetes mellitus without complications; I10 Essential (primary) hypertension; I25.2 Old myocardial infarction; Z86.73 Personal history of transient ischemic attack (TIA), and cerebral infarction without residual deficits; Z95.1 Presence of aortocoronary bypass graft; Z79.899 Other long term (current) drug therapy; Z79.84 Long term (current) use of oral hypoglycemic drugs; W05.0XXA Fall from non-moving wheelchair, initial encounter
CPT/HCPCS: 70450

== ENCOUNTER 2021-12-17 09:25 | Emergency (ER) | payer MEDICARE, BC ==
[~2021-12-17] VITALS: Ht 172.7 cm; Wt 68.0 kg
[2021-12-17] MEDS ORDERED: LISI5 PO (12:26)
== END 2021-12-17 12:22 | disposition home or self-care (01) ==
LOC: ER 09:25
DX: M25.552 Pain in left hip (principal); M25.551 Pain in right hip; I10 Essential (primary) hypertension; E11.9 Type 2 diabetes mellitus without complications; I25.2 Old myocardial infarction; Z79.899 Other long term (current) drug therapy; Z79.84 Long term (current) use of oral hypoglycemic drugs; Z79.01 Long term (current) use of anticoagulants; Z86.73 Personal history of transient ischemic attack (TIA), and cerebral infarction without residual deficits; Z88.8 Allergy status to other drugs, medicaments and biological substances; Z95.1 Presence of aortocoronary bypass graft
CPT/HCPCS: 73522; 99283-25

== ENCOUNTER → 2022-10-08 | Outpatient (CLI) | payer OTHER ==
[~2022-10-08] MED LIST changes: +LISI5 PO; +OMEP20ER PO
[2022-10-08 14:37] LABS: Source, Urine Clean Catch
[2022-10-08 15:57] LABS: Appearance, Urine Clear (Clear); Bilirubin, Urine Neg (Neg); Blood, Urine Neg (Neg); Color, Urine Yellow (P-Yellow); Glucose Qualitative, Urine 4+ (Neg); Ketones, Urine 1+ (Neg); Leukocyte Esterase, Urine Neg (Neg); Nitrite, Urine Neg (Neg); Protein, Urine Neg (Neg); Urobilinogen, Urine NORM (Normal)
[2022-10-08 17:12] LABS: Bacteria Rare /hpf; Mucus Light (0-Heavy); Red Blood Cells, Urine 0-2 /hpf (0-2); Squamous Epithelial Cells Not Seen /hpf (Few); White Blood Cells, Urine 0-2 /hpf (0-5)
== END | disposition home or self-care (01) ==
LOC: LAB SHORT 12:00
PROVIDERS: Internal Medicine
DX: N39.0 Urinary tract infection, site not specified (principal)
CPT/HCPCS: 81001; 81003